=== PATIENT | female | born 2000 | race Hispanic/Latino ===

== ENCOUNTER 2022-04-17 07:43 | Emergency (ER) | payer SELFPAY ==
[2022-04-17 08:20] LABS: Bilirubin Neg (Negative); Blood, Urine 250 (Negative); Glucose, Urine (Dipstick) Normal (Negative); Ketone, Urine Negative (Negative); Leukocyte 500 (Negative); Nitrite Negative (Negative); Protein, Urine (Dipstick) 15 mg/dl (Neg-Trace); Specific Gravity, Urine 1.015 (1.005-1.030); Urobilinogen Normal mg/dL (Less than 2)
[2022-04-17 08:22] LABS: Clarity Slightly Cloudy (Clear)
[2022-04-17 08:29] LABS: #Eosinphils 0.1 10x3/uL (0.0-0.5); #Monocytes 0.5 10x3/uL (0.0-1.1); #Neutrophils 3.1 10x3/uL (1.5-8.4); %Basophils 0.6 % (0.0-2.0); %Lymphocytes 24.9 % (18.0-47.0); %Monocytes 9.8 % (0.0-10.0); %Neutrophils 62.5 % (40.0-75.0); Hemoglobin 12.6 g/dL (12.0-15.5); Mean Corpuscular HGB CONC 33.1 g/dL (32.0-36.0); Mean Corpuscular Hemoglobin 26.4 pg (27.0-33.0); Mean Corpuscular Volume 79.7 fl (81.6-98.3); Mean Platelet Volume 11.5 fl (7.4-10.4); Platelet Count 193 10x3/uL (150-450); RBC Distribution Width 14.4 % (11.5-14.5); Red Blood Cell (RBC) Count 4.78 10x6/uL (3.90-5.03)
[2022-04-17 08:31] LABS: Bacteria/HPF 1+ HPF (None Seen); RBC/HPF 0-3 HPF (0-3)
[2022-04-17 08:42] LABS: ALT (SGPT) 10 U/L (8-55); AST (SGOT) 17 U/L (5-34); Albumin 4.5 g/dL (3.5-5.0); Alkaline Phosphatase 51 U/L (40-110); Anion Gap 12 mmol/L (10-20); BUN (Urea Nitrogen) 8 mg/dL (7.0-18.7); Bilirubin, Total 0.3 mg/dL (0.2-1.2); Calc. Creatinine Clearance 0 mL/min (70-130); Calcium 9.8 mg/dL (7.8-10.44); Carbon Dioxide 21 mmol/L (22-29); Chloride 103 mmol/L (98-107); Estimated GFR 128; Globulin 3.4 g/dL (2.4-3.5); Glucose 93 mg/dL (70-105); Potassium 3.8 mmol/L (3.5-5.1); Protein, Total 7.9 g/dL (6.0-8.3); Sodium 132 mmol/L (136-145)
== END 2022-04-17 11:03 | disposition home or self-care (01) ==
LOC: CSHERS 07:43
DX: O20.0 Threatened abortion (principal); O99.331 Smoking (tobacco) complicating pregnancy, first trimester; F17.290 Nicotine dependence, other tobacco product, uncomplicated; Z3A.08 8 weeks gestation of pregnancy
CPT/HCPCS: 36415; 76856; 80053; 81003; 81015; 84702; 85025; 86900; 86901

== ENCOUNTER 2022-07-22 11:59 | Day surgery (SDC) | payer MEDICAID, OTHER ==
[2022-07-22 12:29] VITALS: BMI 18.5
[2022-07-22] MEDS ORDERED: hydrALAZINE 20 MG/ML VIAL SLOW IVP PRN (13:10)
[2022-07-22] MEDS ORDERED: Lactated Ringer's 1,000 ML IV SCH (13:15)
[2022-07-22] MEDS ORDERED: Acetaminophen 500 MG TAB PO SCH (13:30)
[2022-07-22 14:35] LABS: Anion Gap 12 mmol/L (10-20); BUN (Urea Nitrogen) 9 mg/dL (7.0-18.7); Calc. Creatinine Clearance 114 mL/min (70-130); Calcium 8.8 mg/dL (7.8-10.44); Carbon Dioxide 19 mmol/L (22-29); Chloride 108 mmol/L (98-107); Estimated GFR 135; Glucose 83 mg/dL (70-105); Potassium 3.8 mmol/L (3.5-5.1); Sodium 135 mmol/L (136-145)
[2022-07-22 14:43] LABS: Bilirubin Neg (Negative); Blood, Urine 10 (Negative); Clarity Slightly Cloudy (Clear); Glucose, Urine (Dipstick) Normal (Negative); Ketone, Urine Negative (Negative); Leukocyte 500 (Negative); Nitrite Negative (Negative); Protein, Urine (Dipstick) 15 mg/dl (Neg-Trace); Urobilinogen Normal mg/dL (Less than 2)
[2022-07-22 14:53] LABS: CAUTI Indications for Culture Pregnancy; WBC/HPF 21-50 HPF (0-3)
[2022-07-22 14:54] LABS: Bacteria/HPF 4+ HPF (None Seen)
[2022-07-22 14:55] LABS: Mucous/LPF 2+ LPF (<2+)
[2022-07-22 14:56] LABS: Urine Culture Reflex Yes Yes
[2022-07-22] MEDS ORDERED: cefTRIAXone\\ROCEPHIN 1 GM in Sodium Chloride 0.9% 100 ML IVPB SCH (16:00)
== END 2022-07-22 16:33 | disposition home or self-care (01) ==
LOC: CSHLD/OP 11:59
PROVIDERS: ATTEND Obstetrics & Gynecology
DX: O36.8120 Decreased fetal movements, second trimester, not applicable or unspecified (principal); O99.891 Other specified diseases and conditions complicating pregnancy; R51.9 Headache, unspecified; R42 Dizziness and giddiness; O99.282 Endocrine, nutritional and metabolic diseases complicating pregnancy, second trimester; E86.0 Dehydration; O23.42 Unspecified infection of urinary tract in pregnancy, second trimester; N39.0 Urinary tract infection, site not specified; Z3A.22 22 weeks gestation of pregnancy
CPT/HCPCS: 36415; 76815; 80048; 81001; 87086; 96360; 96372; 99282; J0696; J3490

== ENCOUNTER 2022-11-15 06:00 | Inpatient (IN) | payer OTHER ==
[~2022-11-15 06:00] MED LIST: Acetaminophen 500 MG TAB PO PRN; Butorphanol Tartrate 1 MG/ML VIAL SLOW IVP PRN; Carboprost 250 MCG/ML AMP IM PRN; Diphenoxylate HCl/Atropine Tablet PO PRN; HYDROcodone/Acetaminophen 5/325 mg Tablet PO PRN; Ibuprofen 800 MG TAB PO PRN; Lidocaine 1% (PF) 30 ML VIAL SC PRN; Methylergonovine 0.2 MG/ML VIAL IM PRN; Misoprostol 200 MCG TAB PR PRN; NS w/ Oxytocin 30 units 500 ML IV SCH; Ondansetron PF 4 MG/2 ML Vial IVP PRN; Promethazine HCl 25 MG/ML VIAL IM PRN; Tranexamic Acid 1,000 MG/10 ML VIAL IVP PRN; fentaNYL 50 mcg/mL 1 mL Vial SLOW IVP PRN; hydrALAZINE 20 MG/ML VIAL SLOW IVP PRN
[2022-11-16 05:52] VITALS: BMI 23.8
[2022-11-16] MEDS: Lactated Ringer's 1,000 ML IV SCH ×2 (06:20→06:22)
[2022-11-16] MEDS: Misoprostol 100 MCG TAB VAG SCH ×4 (06:21→15:52)
[2022-11-16 06:40] LABS: Hemoglobin 12.6 g/dL (12.0-15.5); Mean Corpuscular HGB CONC 33.6 g/dL (32.0-36.0); Mean Corpuscular Hemoglobin 28.3 pg (27.0-33.0); Mean Corpuscular Volume 84.3 fl (81.6-98.3); Mean Platelet Volume 13.6 fl (7.4-10.4); Platelet Count 162 10x3/uL (150-450); RBC Distribution Width 13.2 % (11.5-14.5); Red Blood Cell (RBC) Count 4.45 10x6/uL (3.90-5.03); White Blood Cell (WBC) Count 8.5 10x3/uL (3.5-10.5)
[2022-11-16 07:06] LABS: Syphilis Antibody Nonreactive (Nonreactive); Syphilis Antibody Index 0.05 S/CO (<1.00 Non-Reactive)
[2022-11-16 08:24] LABS: HBSAg Index 0.16 S/CO (0-0.99); Hep B Surf Ag - L&D Non-Reactive S/CO (NonReactive)
[2022-11-17] MEDS: Misoprostol 100 MCG TAB VAG SCH (04:31)
[2022-11-17] MEDS ORDERED: NS w/ Oxytocin 30 units 500 ML ONE (07:30)
[2022-11-17] MEDS ORDERED: fentaNYL/Ropivacaine Epidural 100 ML ONE (10:11)
[2022-11-17] MEDS ORDERED: Promethazine HCl 25 MG/ML VIAL IM PRN ×2 (10:33→14:16)
[2022-11-17] MEDS ORDERED: ePHEDrine Sulfate 50 MG/10 ML VIAL SLOW IVP PRN (10:33)
[2022-11-17] MEDS ORDERED: Ondansetron PF 4 MG/2 ML Vial IVP PRN ×2 (10:33→14:16)
[2022-11-17] MEDS ORDERED: Naloxone HCl 0.4 mg/ml Vial IVP PRN ×2 (10:33)
[2022-11-17] MEDS ORDERED: diphenhydrAMINE 50 MG/ML VIAL IVP PRN (10:33)
[2022-11-17] MEDS ORDERED: Lactated Ringer's 500 ML IV PRN (10:33)
[2022-11-17] MEDS ORDERED: Moisturizing Cream (Eucerin) 113 GM JAR TOP PRN (10:33)
[2022-11-17] MEDS ORDERED: Acetaminophen 325 MG TAB PO PRN (10:33)
[2022-11-17] MEDS ORDERED: fentaNYL 2 mcg/Ropivacaine 0.2% Epidural 100 ML CADD EPIDURAL SCH (10:45)
[2022-11-17] MEDS ORDERED: Communication Order-Pharmacy FS SCH (10:45)
[2022-11-17] MEDS: NS w/ Oxytocin 30 units 500 ML IV SCH ×2 (12:20→13:46)
[2022-11-17] MEDS ORDERED: Misoprostol 200 MCG TAB ONE (13:06)
[2022-11-17] MEDS ORDERED: Zolpidem Tartrate 5 MG TAB PO PRN (14:16)
[2022-11-17] MEDS ORDERED: Benzocaine-Menthol 82.5 ML CAN TOP PRN (14:16)
[2022-11-17] MEDS ORDERED: Varicella virus, LIVE 0.5 ML VIAL SC ONE (14:16)
[2022-11-17] MEDS ORDERED: Methylergonovine 0.2 MG/ML VIAL IM PRN (14:16)
[2022-11-17] MEDS ORDERED: NS w/ Oxytocin 30 units 500 ML IV SCH (14:16)
[2022-11-17] MEDS ORDERED: Preparation H Ointment 28 GM TUBE PR PRN (14:16)
[2022-11-17] MEDS ORDERED: Boostrix 0.5 ML (Tdap) VIAL (>/=7 yrs of age) IM ONE (14:16)
[2022-11-17] MEDS ORDERED: Lanolin Ointment 7 GM TUBE TOP PRN (14:16)
[2022-11-17] MEDS ORDERED: diphenhydrAMINE 25 MG CAP PO PRN (14:16)
[2022-11-17] MEDS ORDERED: Milk Of Magnesia 30 ML UDCUP PO PRN (14:16)
[2022-11-17] MEDS ORDERED: HYDROcodone/Acetaminophen 5/325 mg Tablet PO PRN ×2 (14:16)
[2022-11-17] MEDS ORDERED: Measles/Mumps/Rubella 10 MCG/0.5 ML VIAL SC ONE (14:16)
[2022-11-17] MEDS ORDERED: Misoprostol 200 MCG TAB VAG PRN (14:16)
[2022-11-17] MEDS ORDERED: Bisacodyl 10 MG SUPP PR PRN (14:16)
[2022-11-17] MEDS ORDERED: hydrALAZINE 20 MG/ML VIAL SLOW IVP PRN (14:16)
[2022-11-17] MEDS: Ibuprofen 800 MG TAB PO SCH ×2 (15:40→21:57)
[2022-11-17] MEDS: Docusate 100 MG CAP PO SCH (21:56)
[2022-11-18 02:41] LABS: #Eosinphils 0.1 10x3/uL (0.0-0.5); #Monocytes 0.9 10x3/uL (0.0-1.1); #Neutrophils 8.2 10x3/uL (1.5-8.4); %Basophils 0.3 % (0.0-2.0); %Eosinophils 0.6 % (0.0-6.0); %Lymphocytes 17.7 % (18.0-47.0); %Monocytes 7.9 % (0.0-10.0); %Neutrophils 72.9 % (40.0-75.0); Hemoglobin 10.9 g/dL (12.0-15.5); Mean Corpuscular HGB CONC 33.6 g/dL (32.0-36.0); Mean Corpuscular Hemoglobin 28.7 pg (27.0-33.0); Mean Corpuscular Volume 85.3 fl (81.6-98.3); Mean Platelet Volume 13.7 fl (7.4-10.4); Platelet Count 134 10x3/uL (150-450); RBC Distribution Width 13.2 % (11.5-14.5); White Blood Cell (WBC) Count 11.2 10x3/uL (3.5-10.5)
[2022-11-18] MEDS: Ibuprofen 800 MG TAB PO SCH ×3 (06:05→21:14)
[2022-11-18] MEDS: Ferrous Sulfate 325 MG TAB PO SCH ×2 (07:06→16:10)
[2022-11-18] MEDS: Prenatal Vitamin 1 TAB PO SCH (09:13)
[2022-11-18] MEDS: Docusate 100 MG CAP PO SCH ×2 (09:13→21:14)
[2022-11-18] MEDS ORDERED: Bupivacaine 0.25% HCL 30 ML VIAL ONE (15:55)
[2022-11-19] MEDS: Ibuprofen 800 MG TAB PO SCH (06:08)
[2022-11-19] MEDS: Ferrous Sulfate 325 MG TAB PO SCH (07:10)
[2022-11-19 07:52] VITALS: BP 119/84; TEMP 97.5
[2022-11-19] MEDS: Prenatal Vitamin 1 TAB PO SCH (08:50)
[2022-11-19] MEDS: Docusate 100 MG CAP PO SCH (08:50)
[2022-11-19] MEDS: Lactated Ringer's 1,000 ML IV SCH ×2 (10:17→10:18)
== END 2022-11-19 12:45 | disposition home or self-care (01) | DRG 807 ==
LOC: CSHLD 11-16 05:35 → CSHPP 11-17 14:30
PROVIDERS: ADMIT Obstetrics & Gynecology; ATTEND Obstetrics & Gynecology
PROC: 10E0XZZ Delivery of Products of Conception, External Approach (ICD-10-PCS; principal; 2022-11-16)
PROC: 3E0P7VZ Introduction of Hormone into Female Reproductive, Via Natural or Artificial Opening (ICD-10-PCS; 2022-11-16)
DX: O80 Encounter for full-term uncomplicated delivery (principal); Z37.0 Single live birth; Z3A.39 39 weeks gestation of pregnancy
CPT/HCPCS: 36415; 51702; 85025; 85027; 86780; 86850; 86900; 86901; 87340; J2590; J3010; J7120; S0020